=== PATIENT | female | born 1990 | race Caucasian/White ===

== ENCOUNTER 2022-12-11 21:00 | Outpatient (CLI) | payer OTHER ==
--- NOTE | 2022-12-12 09:15 | Ultrasound Report ---
PROCEDURE: Pelvic w/Transvaginal INDICATIONS: IUD SURVEILLANCE TECHNIQUE: Real-time scanning was performed of the pelvic organs, with image documentation. Additional endovagi nal scanning was necessary due to incomplete visualization of the adnexal and endometrial structures by transabdominal scanning. COMPARISON: None. FINDINGS: Uterus: Uterus is anteverted and normal in size at 7.6 x 3.7 x 4.9 cm. The myometrium is homogeneou s. The endometrium measures 5 mm in combined thickness. IUD within the central myometrium. Ovaries: The right ovary measures 2.8 x 3.3 x 2.7 cm, with a calculated ovarian volume of 13 cc. Th e left ovary measures 3.0 x 2.3 x 2.1 cm, with a calculated ovarian volume of 8 cc. Complex right ov monico follicle, with anechoic and hyperechoic components. The ovaries have a normal sonographic appea ayan. Less than 12 follicles can be seen in each ovary. No adnexal masses are seen. No cystic lesi ons measuring greater than 3 cm. Other: No pathologic free abdominal or pelvic fluid. IMPRESSION: IUD within the central endometrium. Complex right ovarian follicle with anechoic and hyperechoic components. Differential includes a derm oid/mature teratoma or hemorrhagic cyst. Consider 6-12 week follow-up. Reviewed by: Bradley Ba on 12/12/2022 9:14 AM PDT Approved by: Bradley Ba on 12/12/2022 9:14 AM PDT Station ID: [id number]
== END 2022-12-11 21:01 | disposition home or self-care (01) ==
LOC: DI 21:00
PROVIDERS: ATTEND Nurse Practitioner
DX: Z30.431 Encounter for routine checking of intrauterine contraceptive device (principal)

== ENCOUNTER 2023-07-13 08:00 | Outpatient (CLI) | payer OTHER ==
[2023-07-13 17:36] LABS: BILIRUBIN,URINE NEGATIVE (NEGATIVE); GLUCOSE, URINE (UA) NEGATIVE (NEGATIVE); KETONES,URINE (UA) 40 mg/dL (NEGATIVE); LEUKOCYTE ESTERASE, URINE NEGATIVE (NEGATIVE); NITRITE,URINE NEGATIVE (NEGATIVE); OCCULT BLOOD,URINE NEGATIVE (NEGATIVE); PROTEIN,URINE NEGATIVE (NEGATIVE); UROBILINOGEN,URINE 0.2 (NORMAL) E.U./dL (NORMAL)
[2023-07-13 17:56] LABS: CLARITY,URINE CLEAR (CLEAR)
[2023-07-13 18:00] LABS: BACTERIA,URINE Moderate /HPF (None Seen); RBC,URINE 0-5 /HPF (0-5); SQUAMOUS EPITHELIAL CELL,UR FEW Squamous (<= Few)
== END 2023-07-13 23:59 | disposition home or self-care (01) ==
LOC: LAB.WC 08:00
PROVIDERS: ATTEND Obstetrics & Gynecology
DX: Z34.90 Encounter for supervision of normal pregnancy, unspecified, unspecified trimester (principal)
CPT/HCPCS: 81001; 87086

== ENCOUNTER 2023-07-26 10:26 | Outpatient (CLI) | payer OTHER ==
[2023-07-26 23:01] LABS: CHLAMYDIA TRACHOMATIS DNA NEGATIVE (NEGATIVE); NEISSERIA GONORRHOEAE DNA NEGATIVE (NEGATIVE); TRICHOMONAS VAGINALIS DNA NEGATIVE (NEGATIVE)
== END 2023-07-26 10:27 | disposition home or self-care (01) ==
LOC: LAB 10:26
PROVIDERS: ATTEND Obstetrics & Gynecology
DX: Z36.89 Encounter for other specified antenatal screening (principal)
CPT/HCPCS: 87491; 87591; 87661

== ENCOUNTER 2023-08-13 18:30 | Outpatient (CLI) | payer OTHER ==
--- NOTE | 2023-08-14 11:54 | Ultrasound Report ---
PROCEDURE: OB 1st Trimester INDICATIONS: POSITIVE TEST OUTSIDE/PRIOR DATING DATA: Last menstrual period (LMP): 05/07/2023. LMP-based estimated date of delivery (KATTY): 02/11/2024. First dating scan (date and location): Today. Estimated date of delivery (KATTY) from first dating scan: 04/10/2023. TECHNIQUE: Real-time scanning was performed of the fetus and maternal pelvic organs, with image documentation. COMPARISON: None. FINDINGS: Intrauterine living gestation at an ultrasound age of 14 weeks and 3 days. Renfrow-rump bobby th is 8.19 cm. BPD is 2.73 cm. Head circumference is 9.86 cm. Abdominal circumference is 8.24 cm. Fem ur length is 1.4 cm. heart motion at a rate of 153 bpm. Cervical length is 4.7 cm. Left corpus luteum cyst. IMPRESSION: Living intrauterine gestation at an ultrasound age of 14 weeks and 3 days. Recommend anatomic survey at 20 weeks of gestation. Reviewed by: Jet Estrella MD on 08/14/2023 11:53 AM PDT Approved by: Jet Estrella MD on 08/14/2023 11:53 AM PDT Station ID: [id number]
== END 2023-08-13 18:31 | disposition home or self-care (01) ==
LOC: DI 18:30
PROVIDERS: ATTEND Obstetrics & Gynecology
DX: Z34.91 Encounter for supervision of normal pregnancy, unspecified, first trimester (principal)

== ENCOUNTER 2023-09-17 11:43 | Outpatient (CLI) | payer OTHER | END 2023-09-17 11:44 | disposition home or self-care (01) | LOC: LAB 11:43 | PROVIDERS: ATTEND Obstetrics & Gynecology | DX: Z34.90 Encounter for supervision of normal pregnancy, unspecified, unspecified trimester (principal) | CPT/HCPCS: 36415; 82105 ==

== ENCOUNTER 2023-09-25 18:35 | Outpatient (CLI) | payer OTHER ==
--- NOTE | 2023-09-26 20:06 | Ultrasound Report ---
PROCEDURE: OB Anatomy Scan INDICATIONS: SUPERVISION OF OUTSIDE/PRIOR DATING DATA: Last menstrual period (LMP): 05/07/2023. LMP-based estimated date of delivery (KATTY): 06/12/2023. First dating scan (date and location): 08/13/2023. Estimated date of delivery (KATTY) from first dating scan: 04/10/2023. The below data below was generated using the working KATTY of 04/13/2023 TECHNIQUE: Ultrasound of the gravid uterus was performed and recorded. COMPARISON: None. FINDINGS: General: A single live intrauterine gestation is present. Presentation: Vertex Placenta: Placental position is posterior without previa. Amniotic fluid index: 16.7 cm, 72.4 percentile for gestational age. heart rate: 150 beats per minute. Maternal cervical canal: 3.2 cm long; normal length is 2.5 cm or more. biometrics: Biparietal diameter: 4.75 cm, 20 week 3 day, 59 percentile Head circumference: 17.9 cm, 20 week 3 day, 54 percentile Abdominal circumference: 15.4 cm, 20 week 4 day, 60 percentile Femur length: 3.4 cm, 20 week 6 day, 16 percentile Estimated gestational age by working dates: 20 week 1 day Composite gestational age by current ultrasound: 20 week 4 day Estimated weight and percentile: 370 g, 75 percentile Measurement variability in biometric dating: +/- 10 days from 12-20 weeks gestation, +/- 2 weeks from 20-30 weeks gestation, +/- 3 weeks at 30 weeks gestation or more. Anatomic survey: Neuro: Ventricles are non-dilated at less than 10 mm. Cisterna magna is normal at 3-11 mm. Cerebel lum is normal in size and morphology. Nuchal skin fold: Normal at less than 6 mm between 14-20 weeks gestational age. Face: Nose and lips, facial profile are normal. Spine: No evidence for spina bifida. Heart: 4-chambered heart is present, with normal ventricular outflow tracts. Diaphragm: Diaphragm is intact. Stomach: Left-sided stomach is present. Kidneys: No hydronephrosis. Normal is less than 5 mm in 2nd trimester, less than 7 mm in 3rd trimester. Cord: 3-vessel cord has orthotopic insertion. Bladder: Normal in size. Extremities: All 4 extremities identified. Other: Not applicable. IMPRESSION: Single live intrauterine consistent with 20 week 4 day gestation by current ultrasound Normal anatomic survey Reviewed by: Onur De León MD on 09/26/2023 7:04 PM LUIS Approved by: Onur De León MD on 09/26/2023 7:04 PM LUIS Station ID: [id number]
== END 2023-09-25 18:36 | disposition home or self-care (01) ==
LOC: DI 18:35
PROVIDERS: ATTEND Obstetrics & Gynecology
DX: Z34.92 Encounter for supervision of normal pregnancy, unspecified, second trimester (principal); Z36.89 Encounter for other specified antenatal screening

== ENCOUNTER 2023-11-01 14:31 | Outpatient (CLI) | payer OTHER ==
[2023-11-01 15:42] LABS: HCT - HEMATOCRIT 33.7 % (37.0-47.0); HGB - HEMOGLOBIN 11.5 g/dL (12.0-16.0); MEAN CORPUSCULAR HEMOGLOBIN 32.3 pg (27.0-31.0); MEAN CORPUSCULAR HGB CONC 34.1 g/dL (32.0-36.0); MEAN CORPUSCULAR VOLUME 94.7 fL (81.0-99.0); MEAN PLATELET VOLUME 9.3 fL (7.9-10.8); RED BLOOD COUNT 3.56 10^6/uL (4.20-5.40); RED CELL DISTRIBUTION WIDTH 12.9 % (12.0-15.0); WHITE BLOOD COUNT 8.8 x10^3/uL (4.8-10.8)
== END 2023-11-01 14:32 | disposition home or self-care (01) ==
LOC: LAB 14:31
PROVIDERS: ATTEND Obstetrics & Gynecology
DX: Z34.02 Encounter for supervision of normal first pregnancy, second trimester (principal)
CPT/HCPCS: 36415; 82950; 85027

== ENCOUNTER 2023-11-16 08:00 | Outpatient (CLI) | payer OTHER ==
[2023-11-16 08:27] LABS: GTT GLUCOSE,FASTING 81 mg/dL (74-109)
== END 2023-11-16 08:01 | disposition home or self-care (01) ==
LOC: LAB 08:00
PROVIDERS: ATTEND Obstetrics & Gynecology
DX: O99.810 Abnormal glucose complicating pregnancy (principal)
CPT/HCPCS: 36415; 82951; 82952

== ENCOUNTER 2024-01-23 12:02 | Inpatient (IN) ==
[2024-01-23] MEDS ORDERED: hydrALAZINE INJ 20 MG/ML VIAL IVP PRN (12:18)
[2024-01-23] MEDS ORDERED: SODIUM CHLORIDE FLUSH 0.9% 10 ML SYRINGE IVP PRN (12:18)
[2024-01-23] MEDS ORDERED: TERBUTALINE 1 MG/ML VIAL SUBQ PRN (12:18)
[2024-01-23] MEDS ORDERED: ONDANSETRON 4 MG/2 ML VIAL IVP PRN (12:18)
[2024-01-23] MEDS ORDERED: OXYTOCIN 10 UNIT/ML VIAL IM PRN (12:18)
[2024-01-23] MEDS ORDERED: NIFEdipine 10 MG CAPSULE PO PRN (12:18)
[2024-01-23] MEDS ORDERED: TRANEXAMIC ACID IN NACL 1,000 MG/100 ML BAG IV PRN (12:18)
[2024-01-23] MEDS ORDERED: miSOPROStoL 200 MCG TABLET BC PRN (12:18)
[2024-01-23] MEDS ORDERED: miSOPROStoL 200 MCG TABLET PR PRN (12:18)
[2024-01-23] MEDS ORDERED: LABETALOL 20 MG/4 ML SYRINGE IVP PRN ×3 (12:18)
[2024-01-23] MEDS ORDERED: METHYLERGONOVINE 0.2 MG/ML VIAL IM PRN (12:18)
[2024-01-23] MEDS: miSOPROStoL 100 MCG TABLET VG SCH (12:54)
--- NOTE | 2024-01-23 13:31 | HISTORY & PHYSICAL EXAMINATION ---
Admit History Smoking Status: Never smoker Other Maternal History Other Maternal History: Patient is a 33-year-old G2, P0 at 37 weeks 2 days gestation presenting for induction of labor secondary to preeclampsia. She has good movement. Denies loss of fluid. No RODRIGUEZ/BV or RUQP. No vaginal bleeding. Denies nausea and vomiting. Denies urinary urgency or dysuria. All other symptoms reviewed and were negative except per HPI. Please call Dr. 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 [employer] AMA - not taking ASA s< d - US: 12/25 38% 2133g Pre- Weight:148.0 BMI: 27.17 Blood type: O+ Antibody: Negative CBC: H/H 12.0/35.6 plt 270 RUB:Immune VZV:Immune HBsAg: Negative HepC: NR RPR/AB-EIA: NR HIV:NR PAP:11/2022 - normal GC/CT: 07/25 negative HSV:denies in self and partner Genetic testing: [id number] negative, AFP Negative FAS: Scheduled 09/23 Placenta: posterior Cord: 3VC WES: 16.7cm; 72.4%tile EFW: 370%tile 50gm OGCT: 141 3HR GTT: 81 151, 106, 93 TDAP:11/26/2023 Breast Pump: received 3rd trimester PLT 232 HCT 33.7 HGB 11.5 11/28/23 hct 32.8% GBS: Delivery plan: Contraception:Possibly IUD. Still considering.: 38%, OB Visit Log Initial Weight: 148 lb Date EGA Weight BP Fundal ht Pres HR Movement CTX Edema Cerv Dil Cerv Eff % Sta 12/10/23 31w 0d 162 lb(+14 lb) 116/80 29 145 active ab sent 12/24/23 33w 0d 165 lb(+17 lb) 132/88 31 145 active oc casional absent 01/01/24 34w 1d 166 lb(+18 lb) 131/88 32 140 active a bsent 01/07/24 35w 0d 166 lb(+18 lb) 130/80 34 Cephalic 145 active ab sent absent 01/14/24 36w 0d 165 lb(+17 lb) 130/71921/16836/94 35 Cephalic 130 act kathy absent absent 01/21/24 37w 0d 168 lb(+20 lb) 140/26193/90 35 Cephalic 145 active absent ab sent 1 0 Notes Visit Date: 01/21/24 Last Updated by: Cody Woody MD Initially elevated BP, then normalized. Cervical exam today caused a moderate amount of bleeding with anterior lip, stopped with pressure from swab. Bleeding precautions given. Patient picked up BP cuff this weekend, but has not checked at home. Wants to discuss plan with her partner before induction. Will come back in two days for BP check and possible induction. Labor precautions and preeclampsia precautions given. Visit Date: 01/14/24 Last Updated by: Cody Woody MD Has URI. BP mildly elevated today. May be due to URI, but has been a little elevated the last several visits. Labs not concerning for preeclampsia today. If it remains elevated, may need early induction. Will finalize plan next week if elevated. GBS collected today. Cephalic presentation. Visit Date: 01/07/24 Last Updated by: Cody Woody MD Patient feeling pain in her left upper quadrant, slightly below the ribs. This gets worse with exertion and improves with lying down. Also improves if she puts pressure on it. Not reproducible on exam today. Discussed that this is likely not severe as it is relieved with touch. If this worsens, should let us know. Also developing hemorrhoids, and declines exam today, however discussed the progression of hemorrhoids in especially over the next few weeks as she gets heavier. Visit Date: 01/01/24 Last Updated by: Renetta J Burckhardt, CHIEF GAUGER Group session. Group education and discussion on contraception including immediate and 6 week options and compatibility with . Discussed medications, care and scheduling with pediatric practices on [place]. Bringing home, carseat safety, swaddling and calming a fussy baby reviewed. Discussion about preparedness for labor and , active management in the third stage and plans for support in the early weeks . ~kjb Visit Date: 12/24/23 Last Updated by: Ursula Crabtree MD here alone. no significant headaches. one 2 d ago and better with tylenol. did birthing class on 12/06 with Radha. felt it was helpful. preeclampsia/PTL precautions. Erin says she was born a month early and wonders if this baby will be early. baby feels low to her and to me. measuring a bit small, likely because it is low. US ordered to check growth and fluid. Both she and her plan a month off with delivery. 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 RSV vaccine today. -djl Visit Date: 12/10/23 Last Updated by: Cody Woody MD Doing very well. Had a good birthing education last week. Discussed delivery timing and baby growth. Things looking very normal. Meds/Allgy Home Medications Ambulatory Orders Medication Instructions Recorded Confirmed fluticasone propionate 50 1 spray intranasal QDAY PRN 12/10/23 01/21/24 mcg/actuation nasal spray,suspension vitamin#30 30 mg iron-10 cap PO 12/10/23 01/21/24 mg iron-folic acid 1 mg-omg3 capsule vit C 90 mg-D3 3.15 mcg-E 3.35 tab PO 12/24/23 01/21/24 [id number] 150 mg chew tablet (Airborne Elderberry Complex) Allergies Allergies Allergy/AdvReac Type Severity Reaction Status Date / Time No Known Drug Allergies Allergy Verified 01/23/24 17:33 [facility] Medical History Medical History (Updated 01/23/24 @ 21:31 by Cody Woody MD) Elevated blood pressure reading in office without diagnosis of hypertension Social History Social History (Updated 12/10/23 @ 12:01 by Josselin Vigil MA) Smoking Status: Never smoker ETOH Use: Wine Substance Use: denies use Physical Other Notes Labor Progress Note/Additional Text: General: Alert, oriented, no acute distress Head: Normal cephalic atraumatic Eyes: PERRLA, extraocular motions intact. Respiratory: Normal rate of respiration. No accessory muscle use, normal respiratory effort. Cardiovascular: Regular rate and rhythm Abdomen: Gravid, nontender, nondistended Extremities: Normal range of motion Neuro: Oriented x3. Normal movements Psych: Appropriate mood and affect. Normal judgment and insight SVE: 03/17/3 Category 1 tracing Irregular contractions Deng: 1 Plan for Labor Plan For Labor I expect patient to be DC'd or transferred within 96 hours.: Yes Conclusion/Plan Problem List (1) 37 weeks gestation of : Plan: Admit to L&D, admit labs, epidural at patient's request Continuous monitoring (2) Pre-eclampsia, severe: Plan: Elevated, but not severe blood pressures. Elevated protein to creatinine ratio. Elevated transaminases. No other symptoms of severe features. Strict Is and Os. Initiate magnesium sulfate for severe features. Will treat blood pressure as needed. Qualifiers: Trimester: third trimester Qualified Code(s): O14.13 - Severe pre- eclampsia, third trimester (3) Advanced maternal age (AMA) in : Plan: Routine care Lab Results 01/23/24 13:30 01/23/24 13:30
[2024-01-23 14:07] LABS: BASOPHILS % (AUTO) 0.4 %; EOSINOPHILS % (AUTO) 0.4 %; HCT - HEMATOCRIT 37.2 % (37.0-47.0); HGB - HEMOGLOBIN 12.2 g/dL (12.0-16.0); LYMPHOCYTES # (AUTO) 1.3 10^3/uL (1.5-3.5); LYMPHOCYTES % (AUTO) 15.9 %; MEAN CORPUSCULAR HEMOGLOBIN 31.4 pg (27.0-31.0); MEAN CORPUSCULAR HGB CONC 32.8 g/dL (32.0-36.0); MEAN CORPUSCULAR VOLUME 95.6 fL (81.0-99.0); MEAN PLATELET VOLUME 10.3 fL (7.9-10.8); MONOCYTES # (AUTO) 0.7 10^3/uL (0.0-1.0); MONOCYTES % (AUTO) 7.9 %; NEUTROPHILS # (AUTO) 6.1 10^3/uL (1.5-6.6); NEUTROPHILS % (AUTO) 74.5 %; PLT - PLATELET COUNT 242 10^3/uL (130-450); RED BLOOD COUNT 3.89 10^6/uL (4.20-5.40); RED CELL DISTRIBUTION WIDTH 12.7 % (12.0-15.0); WHITE BLOOD COUNT 8.2 x10^3/uL (4.8-10.8)
[2024-01-23 14:24] LABS: ALBUMIN 3.5 g/dL (3.2-5.5); ALBUMIN/GLOBULIN RATIO 1.1 (1.0-2.2); BILIRUBIN,TOTAL 0.5 mg/dL (0.2-1.0); CALCIUM 9.6 mg/dL (8.5-10.3); CREATININE 0.5 mg/dL (0.6-1.3); POTASSIUM 3.9 mmol/L (3.5-4.5); TOTAL PROTEIN 6.6 g/dL (6.4-8.9)
[2024-01-23 14:43] LABS: PROTEIN/CREATININE RATIO,URINE 0.2 (<=0.2)
[2024-01-23] MEDS: LACTATED RINGERS 1,000 ML IV SCH (15:11)
[2024-01-23] MEDS: MAGNESIUM SULFATE 4 GRAM 4 GM/50 ML BAG IV ONE (15:17)
[2024-01-23] MEDS: MAGNESIUM SULFATE IN WATER 20 GM/500 ML IV.SOLN IV SCH (15:45)
[2024-01-23] MEDS: ACETAMINOPHEN 500 MG TABLET PO PRN (20:08)
[2024-01-23] MEDS: CALCIUM CARBONATE CHEW 500 MG TABLET PO SCH (21:05)
[2024-01-23] MEDS: SODIUM CHLORIDE FLUSH 0.9% 10 ML SYRINGE IVP SCH (21:06)
[2024-01-23] MEDS: fentaNYL 100 MCG/2 ML VIAL IVP PRN (23:43)
[2024-01-24] MEDS: miSOPROStoL 100 MCG TABLET BC SCH (01:10)
[2024-01-24] MEDS ORDERED: ROPIVACAINE 0.2% 200 MG/100 ML BAG EP ONE (05:44)
[2024-01-24] MEDS ORDERED: LIDOCAINE 2%-EPI 1:100000 20 ML MDV ONE (05:44)
--- NOTE | 2024-01-24 06:47 | ANESTHESIA PROCEDURE NOTE ---
Pre-Anesthesia VS, & Labs Diagnosis Surgical Diagnosis:: 37/2 for iol for pre eclampsia, on mag Procedure Procedure: placement of labor epidural Vitals Vital Signs: Temp Pulse Resp BP Pulse Ox 36.7 C 81 16 136/93 H 98 01/24/24 04:00 01/24/24 04:00 01/24/24 04:00 01/24/24 04:00 01/23/24 21:12 Height (in): 5 ft 2 in Weight (kg): 75 kg Body Mass Index: 30.2 BMI Classification: Obese NPO Last Fluid Intake: sips at this point Is Patient ?: Yes Lab Results Current Lab Results: Laboratory Tests 01/23/24 13:30: WBC 8.2, RBC 3.89 L, Hgb 12.2, Hct 37.2, MCV 95.6, MCH 31.4 H, MCHC 32.8, RDW 12.7, Plt Count 242, MPV 10.3, Neut # (Auto) 6.1, Lymph # (Auto) 1.3 L, [place] # (Auto) 0.7, Eos # (Auto) 0.0, Baso # (Auto) 0.0, Absolute Nucleated RBC 0.00, Nucleated RBC % 0.0, Sodium 137, Potassium 3.9, Chloride 105, Carbon Dioxide 23, Anion Gap 9.0, BUN 9, Creatinine 0.5 L, Estimated GFR (MDRD) 140, Glucose 97, Calcium 9.6, Total Bilirubin 0.5, AST 84 H, ALT 214 H, A lkaline Phosphatase 132 H, Total Protein 6.6, Albumin 3.5, Globulin 3.1, Albumin/Globulin Ratio 1.1, Blood Type O POSITIVE, Antibody Screen NEGATIVE Lab results reviewed: Yes 01/23/24 13:30 01/23/24 13:30 Meds/Allgy Home Medications Ambulatory Orders Medication Instructions Recorded Confirmed fluticasone propionate 50 1 spray intranasal QDAY PRN 12/10/23 01/21/24 mcg/actuation nasal spray,suspension vitamin#30 30 mg iron-10 cap PO 12/10/23 01/21/24 mg iron-folic acid 1 mg-omg3 capsule vit C 90 mg-D3 3.15 mcg-E 3.35 tab PO 12/24/23 01/21/24 [id number] 150 mg chew tablet (Airborne Elderberry Complex) Allergies Allergies Allergy/AdvReac Type Severity Reaction Status Date / Time No Known Drug Allergies Allergy Verified 01/23/24 17:33 PFSH Medical History Medical History Elevated blood pressure reading in office without diagnosis of hypertension Social History Social History Smoking Status: Never smoker ETOH Use: Wine Substance Use: denies use Anesthesia Exam (Expanded) Exam General: Alert and Mild distress Dental: WNL Mouth Openin Fingerbreadth Neck Mobility: Normal Mallampati classification: II Thyromental Distance: 4-6 cm Respiratory: Lungs clear Cardiovascular: Regular rate Mental/Cognitive Status: Other (denies visual disturbance or ringing in hears) Plan Problem List (1) 37 weeks gestation of : Plan: Admit to L&D, admit labs, epidural at patient's request Continuous monitoring (2) Pre-eclampsia, severe: Plan: Elevated, but not severe blood pressures. Elevated protein to creatinine ratio. Elevated transaminases. No other symptoms of severe features. Strict Is and Os. Initiate magnesium sulfate for severe features. Will treat blood pressure as needed. Qualifiers: Trimester: third trimester Qualified Code(s): O14.13 - Severe pre- eclampsia, third trimester (3) Advanced maternal age (AMA) in : Plan: Routine care Plan Anesthesia Type: Epidural Consent for Procedure(s) Verified and Reviewed: Yes Code Status: Attempt Resuscitation ASA Classification ASA classification: 2-Mild systemic disease Is this case an emergency?: No
[2024-01-24] MEDS ORDERED: ePHEDrine 50 MG/ML VIAL IVP PRN (06:50)
[2024-01-24] MEDS ORDERED: NALOXONE 0.4 MG/ML VIAL IVP PRN (06:50)
[2024-01-24] MEDS ORDERED: diphenhydrAMINE INJ 50 MG/ML VIAL IVP PRN (06:50)
[2024-01-24] MEDS ORDERED: ROPIVACAINE 0.2% 200 MG/100 ML BAG EP PRN (06:50)
[2024-01-24] MEDS ORDERED: ONDANSETRON 4 MG/2 ML VIAL IVP PRN ×2 (06:50→14:28)
[2024-01-24] MEDS ORDERED: NALBUPHINE 10 MG/ML AMP IVP PRN (06:50)
[2024-01-24] MEDS ORDERED: METOCLOPRAMIDE 10 MG/2 ML VIAL IVP PRN (06:50)
[2024-01-24] MEDS: LACTATED RINGERS 1,000 ML IV PRN (08:12)
[2024-01-24] MEDS: LACTATED RINGERS 500 ML IV ONE (08:14)
[2024-01-24] MEDS: OXYTOCIN/SODIUM CHLORIDE 500 ML IV SCH (08:40)
--- NOTE | 2024-01-24 10:09 | PROVIDER PROGRESS NOTE ---
Labor Progress Note Labor Progress Note Labor Progress Note/Additional Text: Patient comfortable between contractions. Have an epidural placed at approximately 0615. Had some hypotension afterwards and had late/prolonged decelerations and received a fluid bolus and hypotension resolved. Oxytocin was initiated when heart tracing was category 1 and is progressed to 9/90/+1. Spontaneous rupture of membranes last night. Plan to recheck in 1 hour. Anticipate .
[2024-01-24] MEDS: lidocaine 1% 20 ML MDV ID PRN (13:49)
[2024-01-24] MEDS ORDERED: WITCH HAZEL/GLYCERIN 1 PAD TOP PRN (14:28)
[2024-01-24] MEDS ORDERED: SIMETHICONE CHEW 80 MG TABLET PO PRN (14:28)
--- NOTE | 2024-01-24 14:32 | DELIVERY NOTE ---
Delivery Note Labor Labor: positive Augmented by oxytocin Cervical Ripening Method Cervical Ripening Method: positive Misoprostil Presentation Presentation: positive Vertex Nuchal Cord Nuchal Cord: positive None Amniotic Fluid Description Amniotic Fluid Description: positive Clear Laceration Laceration: positive Labial (Right) Suture Suture Type: positive Vicryl Suture Size: positive 3-0 Delivery Outcome Delivery Outcome: positive Livebirth [place] : positive Placed in direct skin contact with mother and [place] used [place] sex: positive Female Cord Cord: positive 3 vessels Placenta Placenta: positive Intact Estimated Blood Loss Estimated Blood Loss (in cc): 350 Post Delivery Events Post Delivery Events: positive No post delivery events Delivery Comments (Free Text/Narrative) Delivery Comments (Free Text/Narrative): Preoperative Diagnoses Preeclampsia with severe features 37 weeks gestation Events maternal age Postoperative Diagnoses Same Delivery of live brooks Status post spontaneous vaginal delivery Summary Patient is admitted at 37 weeks gestation for preeclampsia with severe features. She received magnesium sulfate. Transaminases were double the normal limit and protein to creatinine ratio was 0.3. Blood pressures were elevated, but no sustained severe pressures were noted. She was started on misoprostol for cervical ripening then had spontaneous rupture of membranes. She received an epidural for pain control, and after placement, she had hypotension that resulted in a short period of late and prolonged decelerations. This resolved with a fluid bolus. She had oxytocin for augmentation until complete and ready to push. Her second stage was uneventful, but due to the long spacing between contractions, did take longer than anticipated. Delivery Summary: Patient was placed in the dorsal lithotomy position. Upon maternal pushing the head was delivered atraumatically followed by the anterior shoulder, posterior shoulder, then the remainder of the infant's body. A female infant was delivered with APGARS of 8 at 1 minute and 8 at 5 minutes. The infant was placed on its mother's chest . After the cord finished pulsating, the umbilical cord was clamped times two and cut. The placenta delivered intact with three vessel cord. Placenta was not sent to pathology. Thirty units of Pitocin were added to the IV fluid and allowed to run freely. Uterine massage was performed until uterus was deemed firm. Upon inspection of the perineum, a small, right labial laceration was noted and was repaired with a single [id number] stitch of 3-0 Vicryl. We did anesthetize the area with lidocaine. Upon re-inspection the patient was hemostatic. Uterus again massaged and found to be firm. Needle and sponge counts were correct. Patient was stable and allowed to recover in L&D room. Infant was stable and remained in room with mother. weight is pending at this time.
[2024-01-24] MEDS: IBUPROFEN 600 MG TABLET PO SCH (14:51)
[2024-01-24] MEDS: ACETAMINOPHEN 500 MG TABLET PO SCH (14:51)
[2024-01-24] MEDS ORDERED: LACTATED RINGERS 1,000 ML IV SCH (15:00)
[2024-01-24 18:50] LABS: BASOPHILS % (AUTO) 0.2 %; HCT - HEMATOCRIT 33.4 % (37.0-47.0); HGB - HEMOGLOBIN 11.1 g/dL (12.0-16.0); LYMPHOCYTES # (AUTO) 0.8 10^3/uL (1.5-3.5); LYMPHOCYTES % (AUTO) 3.9 %; MEAN CORPUSCULAR HEMOGLOBIN 31.6 pg (27.0-31.0); MEAN CORPUSCULAR HGB CONC 33.2 g/dL (32.0-36.0); MEAN CORPUSCULAR VOLUME 95.2 fL (81.0-99.0); MEAN PLATELET VOLUME 10.1 fL (7.9-10.8); MONOCYTES # (AUTO) 1.1 10^3/uL (0.0-1.0); MONOCYTES % (AUTO) 5.9 %; NEUTROPHILS # (AUTO) 17.4 10^3/uL (1.5-6.6); NEUTROPHILS % (AUTO) 89.2 %; PLT - PLATELET COUNT 245 10^3/uL (130-450); RED BLOOD COUNT 3.51 10^6/uL (4.20-5.40); RED CELL DISTRIBUTION WIDTH 12.8 % (12.0-15.0); WHITE BLOOD COUNT 19.5 x10^3/uL (4.8-10.8)
[2024-01-24 19:31] LABS: ALBUMIN/GLOBULIN RATIO 1.2 (1.0-2.2); BILIRUBIN,TOTAL 0.7 mg/dL (0.2-1.0); CALCIUM 6.3 mg/dL (8.5-10.3); CREATININE 0.8 mg/dL (0.6-1.3); POTASSIUM 3.8 mmol/L (3.5-4.5); TOTAL PROTEIN 5.5 g/dL (6.4-8.9)
[2024-01-24] MEDS: OXYTOCIN/SODIUM CHLORIDE 500 ML IV PRN (19:51)
[2024-01-24] MEDS: fentaNYL 100 MCG/2 ML VIAL IVP SCH (19:52)
[2024-01-24] MEDS ORDERED: CALCIUM CARBONATE 1,250 MG/5 ML UDC PO SCH (21:20)
[2024-01-24] MEDS ORDERED: CALCIUM CARBONATE CHEW 500 MG TABLET ONE (21:25)
--- NOTE | 2024-01-24 23:36 | PROVIDER PROGRESS NOTE ---
Progress Note Progress Note Progress Note: Went to patient's room at approximately 1930 after nursing called about increased blood loss. She had an additional gush of blood after getting up to go to the bathroom and nursing had expressed clots and had active bleeding. Oxytocin started and bleeding resolved. Upon my exam, she had a small amount of blood on the pad, but no active bleeding. Uterus is firm and below the umbilicus. Vital signs were normal. No dizziness or lightheadedness. In the interim, her labs did come back with critical hypocalcemia, likely from dilution, but no symptoms. Will supplement with oral calcium.
--- NOTE | 2024-01-25 06:52 | PROVIDER PROGRESS NOTE ---
Current Medications Current Medications Current Medications: Current Medications Generic Name Dose Route Start Last Admin Trade Name Freq PRN Reason Stop Dose Admin Acetaminophen 500 mg 01/23/24 12:18 01/23/24 20:08 Acetaminophen 500 Mg Tablet PO 500 mg Q4HR PRN Administration Pain or Fever > 38C (100.4F) Acetaminophen 1,000 mg 01/24/24 15:00 01/24/24 21:29 Acetaminophen 500 Mg Tablet PO 1,000 mg Q8HR BACILIO Administration Calcium Carbonate/Glycine 500 mg 01/23/24 21:00 01/24/24 21:28 Calcium Carbonate Chew 500 Mg Tablet PO 500 mg BID BACILIO Administration Calcium Carbonate/Glycine 500 mg 01/24/24 14:28 Calcium Carbonate Chew 500 Mg Tablet PO TID PRN Heartburn Calcium Carbonate/Glycine 1,000 mg 01/24/24 21:20 Calcium Carbonate 1,250 Mg/5 Ml Udc PO BID BACILIO Diphenhydramine HCl 12.5 - 25 mg 01/24/24 06:50 Diphenhydramine Inj 50 Mg/Ml Vial IVP Q6HR PRN ITCHING Docusate Sodium 100 mg 01/23/24 12:18 Docusate Sodium 100 Mg Capsule PO DAILY PRN Constipation Ephedrine Sulfate 5 mg 01/24/24 06:50 Ephedrine 50 Mg/Ml Vial IVP Q5M PRN For SBP<100;give until SBP>100 Fentanyl 50 mcg 01/24/24 20:00 01/24/24 19:52 Fentanyl 100 Mcg/2 Ml Vial IVP 01/25/24 20:01 50 mcg ONCE BACILIO Administration Hydralazine HCl 5 - 10 mg 01/23/24 12:18 Hydralazine Inj 20 Mg/Ml Vial IVP Q20M PRN SBP> or= 160 OR DBP> or= 110 Protocol Lactated Ringer's 500 mls @ 999 mls/hr 01/23/24 12:18 01/24/24 08:15 Lr IV 100 mls/hr PRN PRN Infusion PER PHYSICIAN ORDER Oxytocin/Sodium Chloride 500 mls @ 999 mls/hr 01/23/24 12:18 01/24/24 19:51 Pitocin/Sodium Chloride IV 999 milliunit/min PRN PRN 999 mls/hr POST- HEMORR PREVENTION Administration Protocol 999 MILLIUNIT/MIN Tranexamic Acid 1,000 mg in 100 mls @ 600 mls/hr 01/23/24 12:18 Tranexamic 1,000 Mg/100ml-Nacl IV Q30M PRN EBL >1200mL and within 3hr Lactated Ringer's 1,000 mls @ 75 mls/hr 01/23/24 14:00 01/24/24 13:50 Lr IV 50 mls/hr .[id number] BACILIO Infusion Magnesium Sulfate 20 gm in 500 mls @ 50 mls/hr 01/23/24 14:00 01/24/24 21:30 Magnesium Sulf 20 G/500 Ml Bag IV 50 mls/hr .Q10H BACILIO Administration Oxytocin/Sodium Chloride 500 mls @ 2 mls/hr 01/24/24 05:00 01/24/24 14:18 Pitocin/Sodium Chloride IV Infused TITR BACILIO Titration Protocol 2 MILLIUNIT/MIN Ropivacaine 200 mg in 100 mls @ 0 mls/hr 01/24/24 06:50 Naropin 0.2% EP PRN PRN PAIN Protocol Per Protocol Lactated Ringer's 1,000 mls @ 100 mls/hr 01/24/24 15:00 Lr IV .Q10H BACILIO Ibuprofen 600 mg 01/24/24 15:00 01/25/24 04:05 Ibuprofen 600 Mg Tablet PO 600 mg Q6HR BACILIO Administration Labetalol HCl 20 mg 01/23/24 12:18 Labetalol 20 Mg/4 Ml Syringe IVP .ONCE PRN SBP> or= 160 OR DBP> or= 110 Protocol Labetalol HCl 20 - 40 mg 01/23/24 12:18 Labetalol 20 Mg/4 Ml Syringe IVP Q10M PRN SBP> or= 160 OR DBP> or= 110 Protocol Labetalol HCl 20 - 80 mg 01/23/24 12:18 Labetalol 20 Mg/4 Ml Syringe IVP Q10M PRN SBP> or= 160 OR DBP> or= 110 Protocol Lidocaine HCl 20 ml 01/23/24 12:18 01/24/24 13:49 Lidocaine 1% 20 Ml Mdv ID 01/26/24 12:18 20 ml .ONCE PRN Administration PERINEAL REPAIR Methylergonovine Maleate 0.2 mg 01/23/24 12:18 Methylergonovine 0.2 Mg/Ml Vial IM .ONCE PRN Hemorrhage Metoclopramide HCl 10 mg 01/24/24 06:50 Metoclopramide 10 Mg/2 Ml Vial IVP Q6HR PRN Nausea / Vomiting Misoprostol 600 mcg 01/23/24 12:18 Misoprostol 200 Mcg Tablet BC .ONCE PRN Hemorrhage Misoprostol 800 mcg 01/23/24 12:18 Misoprostol 200 Mcg Tablet NV .ONCE PRN Hemorrhage Nalbuphine HCl 2.5 - 5 mg 01/24/24 06:50 Nalbuphine 10 Mg/Ml Amp IVP Q4H PRN ITCHING Naloxone HCl 0.1 mg 01/24/24 06:50 Naloxone 0.4 Mg/Ml Vial IVP Q2M PRN RR<8 Nifedipine 10 - 20 mg 01/23/24 12:18 Nifedipine 10 Mg Capsule PO Q20M PRN SBP> or= 160 OR DBP> or= 110 Protocol Ondansetron HCl 4 mg 01/23/24 12:18 Ondansetron 4 Mg/2 Ml Vial IVP Q4HR PRN Nausea / Vomiting Ondansetron HCl 4 mg 01/24/24 06:50 Ondansetron 4 Mg/2 Ml Vial IVP Q6HR PRN Nausea / Vomiting Ondansetron HCl 4 mg 01/24/24 14:28 Ondansetron 4 Mg/2 Ml Vial IVP Q4HR PRN Nausea / Vomiting Oxytocin 10 unit 01/23/24 12:18 Oxytocin 10 Unit/Ml Vial IM .ONCE PRN Step One if no IV access. Simethicone 80 mg 01/24/24 14:28 Simethicone Chew 80 Mg Tablet PO TID PRN Gas Sodium Chloride 10 ml 01/23/24 12:18 Sodium Chloride Flush 0.9% 10 Ml Syringe IVP PRN PRN NEEDED PER PROVIDER ORDERS Sodium Chloride 10 ml 01/23/24 13:00 01/24/24 08:43 Sodium Chloride Flush 0.9% 10 Ml Syringe IVP 10 ml Q8H BACILIO Administration Terbutaline Sulfate 0.25 mg 01/23/24 12:18 Terbutaline 1 Mg/Ml Vial SUBQ .ONCE PRN Tachystole Witch Melania/Glycerin 1 pad 01/24/24 14:28 Witch Melania/Glycerin 1 Pad TOP PRN PRN ITCHING Objective Vital Signs/Intake & Output Vital Signs: Vital Signs x48h Temp Pulse Resp BP Pulse Ox 01/25/24 06:00 79 16 107/79 01/25/24 05:00 72 16 106/69 01/25/24 04:00 78 18 127/89 01/25/24 03:00 36.8 C 77 16 105/86 99 01/25/24 02:00 71 18 100/66 01/25/24 01:00 82 16 116/82 01/25/24 00:00 36.7 C 82 18 108/74 98 01/24/24 23:00 74 16 106/78 Intake & Output: Intake & Output 01/23/24 01/24/24 01/25/24 01/26/24 05:59 05:59 05:59 05:59 Intake Total 3237 / 3237 3890 / 3890 50 / 50 Output Total 1500 / 1500 3075 / 3075 Balance 1737 / 1737 815 / 815 50 / 50 Weight (kg) 166 lb 7.184 oz 165 lb 5.547 oz Lab Results 01/24/24 18:44 01/24/24 18:44 Other Labs: Lab Results x24hrs 01/24/24 Range/Units 18:44 WBC 19.5 H (4.8-10.8) x10^3/uL RBC 3.51 L (4.20-5.40) 10^6/uL Hgb 11.1 L (12.0-16.0) g/dL Hct 33.4 L (37.0-47.0) % MCV 95.2 (81.0-99.0) fL MCH 31.6 H (27.0-31.0) pg MCHC 33.2 (32.0-36.0) g/dL RDW 12.8 (12.0-15.0) % Plt Count 245 (130-450) 10^3/uL MPV 10.1 (7.9-10.8) fL Neut # (Auto) 17.4 H (1.5-6.6) 10^3/uL Lymph # (Auto) 0.8 L (1.5-3.5) 10^3/uL [place] # (Auto) 1.1 H (0.0-1.0) 10^3/uL Eos # (Auto) 0.0 (0.0-0.7) 10^3/uL Baso # (Auto) 0.0 (0.0-0.1) 10^3/uL Absolute Nucleated RBC 0.00 x10^3/uL Nucleated RBC % 0.0 /100WBC Sodium 133 L (135-145) mmol/L Potassium 3.8 (3.5-4.5) mmol/L Chloride 104 (101-111) mmol/L Carbon Dioxide 22 (21-32) mmol/L Anion Gap 7.0 (6-13) BUN 7 (6-20) mg/dL Creatinine 0.8 (0.6-1.3) mg/dL Estimated GFR (MDRD) 82 L (>89) Glucose 234 H (74-104) mg/dL Calcium 6.3 L* (8.5-10.3) mg/dL Total Bilirubin 0.7 (0.2-1.0) mg/dL AST 151 H (10-42) IU/L ALT 287 H (10-60) IU/L Alkaline Phosphatase 115 (42-121) IU/L Total Protein 5.5 L (6.4-8.9) g/dL Albumin 3.0 L (3.2-5.5) g/dL Globulin 2.5 (2.1-4.2) g/dL Albumin/Globulin Ratio 1.2 (1.0-2.2) Assessment/Plan Problem List (1) 37 weeks gestation of : (2) Pre-eclampsia, severe: Qualifiers: Trimester: third trimester Qualified Code(s): O14.13 - Severe pre- eclampsia, third trimester (3) Advanced maternal age (AMA) in :
--- NOTE | 2024-01-25 07:06 | PROVIDER PROGRESS NOTE ---
Subjective Subjective Subjective: No headache, changes in vision, right upper quadrant pain. Patient reports she is doing well. Lochia appropriate. Denies heavy bleeding. Ambulating. No difficulties bleeding Pelvic and abdominal pain well-controlled. Tolerating oral intake. Diet: Regular. Voiding without difficulty. Passing flatus. Denies BM. Patient is bonding with baby in room Breast feeding going well. Denies feeling lightheaded, dizzy or excessively fatigued. Objective General: Alert, oriented, no apparent distress. Cardiovascular: Regular rate. Regular rhythm. Lungs: No increased work of breathing. Clear to auscultation bilaterally. Abdomen: Uterus firm. Below umbilicus. No guarding or rebound. Extremities: No pain on palpation. No cords palpated. Distal pulses intact. DTR 2+. No clonus Current Medications Current Medications Current Medications: Current Medications Generic Name Dose Route Start Last Admin Trade Name Freq PRN Reason Stop Dose Admin Acetaminophen 500 mg 01/23/24 12:18 01/23/24 20:08 Acetaminophen 500 Mg Tablet PO 500 mg Q4HR PRN Administration Pain or Fever > 38C (100.4F) Acetaminophen 1,000 mg 01/24/24 15:00 01/24/24 21:29 Acetaminophen 500 Mg Tablet PO 1,000 mg Q8HR BACILIO Administration Calcium Carbonate/Glycine 500 mg 01/23/24 21:00 01/24/24 21:28 Calcium Carbonate Chew 500 Mg Tablet PO 500 mg BID BACILIO Administration Calcium Carbonate/Glycine 500 mg 01/24/24 14:28 Calcium Carbonate Chew 500 Mg Tablet PO TID PRN Heartburn Calcium Carbonate/Glycine 1,000 mg 01/24/24 21:20 Calcium Carbonate 1,250 Mg/5 Ml Udc PO BID BACILIO Diphenhydramine HCl 12.5 - 25 mg 01/24/24 06:50 Diphenhydramine Inj 50 Mg/Ml Vial IVP Q6HR PRN ITCHING Docusate Sodium 100 mg 01/23/24 12:18 Docusate Sodium 100 Mg Capsule PO DAILY PRN Constipation Ephedrine Sulfate 5 mg 01/24/24 06:50 Ephedrine 50 Mg/Ml Vial IVP Q5M PRN For SBP<100;give until SBP>100 Fentanyl 50 mcg 01/24/24 20:00 01/24/24 19:52 Fentanyl 100 Mcg/2 Ml Vial IVP 01/25/24 20:01 50 mcg ONCE BACILIO Administration Hydralazine HCl 5 - 10 mg 01/23/24 12:18 Hydralazine Inj 20 Mg/Ml Vial IVP Q20M PRN SBP> or= 160 OR DBP> or= 110 Protocol Lactated Ringer's 500 mls @ 999 mls/hr 01/23/24 12:18 01/24/24 08:15 Lr IV 100 mls/hr PRN PRN Infusion PER PHYSICIAN ORDER Oxytocin/Sodium Chloride 500 mls @ 999 mls/hr 01/23/24 12:18 01/24/24 19:51 Pitocin/Sodium Chloride IV 999 milliunit/min PRN PRN 999 mls/hr POST- HEMORR PREVENTION Administration Protocol 999 MILLIUNIT/MIN Tranexamic Acid 1,000 mg in 100 mls @ 600 mls/hr 01/23/24 12:18 Tranexamic 1,000 Mg/100ml-Nacl IV Q30M PRN EBL >1200mL and within 3hr Lactated Ringer's 1,000 mls @ 75 mls/hr 01/23/24 14:00 01/24/24 13:50 Lr IV 50 mls/hr .[id number] BACILIO Infusion Magnesium Sulfate 20 gm in 500 mls @ 50 mls/hr 01/23/24 14:00 01/24/24 21:30 Magnesium Sulf 20 G/500 Ml Bag IV 50 mls/hr .Q10H BACILIO Administration Oxytocin/Sodium Chloride 500 mls @ 2 mls/hr 01/24/24 05:00 01/24/24 14:18 Pitocin/Sodium Chloride IV Infused TITR BACILIO Titration Protocol 2 MILLIUNIT/MIN Ropivacaine 200 mg in 100 mls @ 0 mls/hr 01/24/24 06:50 Naropin 0.2% EP PRN PRN PAIN Protocol Per Protocol Lactated Ringer's 1,000 mls @ 100 mls/hr 01/24/24 15:00 Lr IV .Q10H BACILIO Ibuprofen 600 mg 01/24/24 15:00 01/25/24 04:05 Ibuprofen 600 Mg Tablet PO 600 mg Q6HR BACILIO Administration Labetalol HCl 20 mg 01/23/24 12:18 Labetalol 20 Mg/4 Ml Syringe IVP .ONCE PRN SBP> or= 160 OR DBP> or= 110 Protocol Labetalol HCl 20 - 40 mg 01/23/24 12:18 Labetalol 20 Mg/4 Ml Syringe IVP Q10M PRN SBP> or= 160 OR DBP> or= 110 Protocol Labetalol HCl 20 - 80 mg 01/23/24 12:18 Labetalol 20 Mg/4 Ml Syringe IVP Q10M PRN SBP> or= 160 OR DBP> or= 110 Protocol Lidocaine HCl 20 ml 01/23/24 12:18 01/24/24 13:49 Lidocaine 1% 20 Ml Mdv ID 01/26/24 12:18 20 ml .ONCE PRN Administration PERINEAL REPAIR Methylergonovine Maleate 0.2 mg 01/23/24 12:18 Methylergonovine 0.2 Mg/Ml Vial IM .ONCE PRN Hemorrhage Metoclopramide HCl 10 mg 01/24/24 06:50 Metoclopramide 10 Mg/2 Ml Vial IVP Q6HR PRN Nausea / Vomiting Misoprostol 600 mcg 01/23/24 12:18 Misoprostol 200 Mcg Tablet BC .ONCE PRN Hemorrhage Misoprostol 800 mcg 01/23/24 12:18 Misoprostol 200 Mcg Tablet SC .ONCE PRN Hemorrhage Nalbuphine HCl 2.5 - 5 mg 01/24/24 06:50 Nalbuphine 10 Mg/Ml Amp IVP Q4H PRN ITCHING Naloxone HCl 0.1 mg 01/24/24 06:50 Naloxone 0.4 Mg/Ml Vial IVP Q2M PRN RR<8 Nifedipine 10 - 20 mg 01/23/24 12:18 Nifedipine 10 Mg Capsule PO Q20M PRN SBP> or= 160 OR DBP> or= 110 Protocol Ondansetron HCl 4 mg 01/23/24 12:18 Ondansetron 4 Mg/2 Ml Vial IVP Q4HR PRN Nausea / Vomiting Ondansetron HCl 4 mg 01/24/24 06:50 Ondansetron 4 Mg/2 Ml Vial IVP Q6HR PRN Nausea / Vomiting Ondansetron HCl 4 mg 01/24/24 14:28 Ondansetron 4 Mg/2 Ml Vial IVP Q4HR PRN Nausea / Vomiting Oxytocin 10 unit 01/23/24 12:18 Oxytocin 10 Unit/Ml Vial IM .ONCE PRN Step One if no IV access. Simethicone 80 mg 01/24/24 14:28 Simethicone Chew 80 Mg Tablet PO TID PRN Gas Sodium Chloride 10 ml 01/23/24 12:18 Sodium Chloride Flush 0.9% 10 Ml Syringe IVP PRN PRN NEEDED PER PROVIDER ORDERS Sodium Chloride 10 ml 01/23/24 13:00 01/24/24 08:43 Sodium Chloride Flush 0.9% 10 Ml Syringe IVP 10 ml Q8H BACILIO Administration Terbutaline Sulfate 0.25 mg 01/23/24 12:18 Terbutaline 1 Mg/Ml Vial SUBQ .ONCE PRN Tachystole Witch Melania/Glycerin 1 pad 01/24/24 14:28 Witch Melania/Glycerin 1 Pad TOP PRN PRN ITCHING Objective Vital Signs/Intake & Output Vital Signs: Vital Signs x48h Temp Pulse Resp BP Pulse Ox 01/25/24 06:00 79 16 107/79 01/25/24 05:00 72 16 106/69 01/25/24 04:00 78 18 127/89 01/25/24 03:00 36.8 C 77 16 105/86 99 01/25/24 02:00 71 18 100/66 01/25/24 01:00 82 16 116/82 01/25/24 00:00 36.7 C 82 18 108/74 98 Intake & Output: Intake & Output 01/23/24 01/24/24 01/25/24 01/26/24 05:59 05:59 05:59 05:59 Intake Total 3237 / 3237 3890 / 3890 50 / 50 Output Total 1500 / 1500 3075 / 3075 Balance 1737 / 1737 815 / 815 50 / 50 Weight (kg) 166 lb 7.184 oz 165 lb 5.547 oz Lab Results 01/25/24 07:24 01/24/24 18:44 Other Labs: Lab Results x24hrs 01/24/24 Range/Units 18:44 WBC 19.5 H (4.8-10.8) x10^3/uL RBC 3.51 L (4.20-5.40) 10^6/uL Hgb 11.1 L (12.0-16.0) g/dL Hct 33.4 L (37.0-47.0) % MCV 95.2 (81.0-99.0) fL MCH 31.6 H (27.0-31.0) pg MCHC 33.2 (32.0-36.0) g/dL RDW 12.8 (12.0-15.0) % Plt Count 245 (130-450) 10^3/uL MPV 10.1 (7.9-10.8) fL Neut # (Auto) 17.4 H (1.5-6.6) 10^3/uL Lymph # (Auto) 0.8 L (1.5-3.5) 10^3/uL [place] # (Auto) 1.1 H (0.0-1.0) 10^3/uL Eos # (Auto) 0.0 (0.0-0.7) 10^3/uL Baso # (Auto) 0.0 (0.0-0.1) 10^3/uL Absolute Nucleated RBC 0.00 x10^3/uL Nucleated RBC % 0.0 /100WBC Sodium 133 L (135-145) mmol/L Potassium 3.8 (3.5-4.5) mmol/L Chloride 104 (101-111) mmol/L Carbon Dioxide 22 (21-32) mmol/L Anion Gap 7.0 (6-13) BUN 7 (6-20) mg/dL Creatinine 0.8 (0.6-1.3) mg/dL Estimated GFR (MDRD) 82 L (>89) Glucose 234 H (74-104) mg/dL Calcium 6.3 L* (8.5-10.3) mg/dL Total Bilirubin 0.7 (0.2-1.0) mg/dL AST 151 H (10-42) IU/L ALT 287 H (10-60) IU/L Alkaline Phosphatase 115 (42-121) IU/L Total Protein 5.5 L (6.4-8.9) g/dL Albumin 3.0 L (3.2-5.5) g/dL Globulin 2.5 (2.1-4.2) g/dL Albumin/Globulin Ratio 1.2 (1.0-2.2) Assessment/Plan Problem List (1) 37 weeks gestation of : Impression: Routine care. Anticipate discharge tomorrow. (2) Pre-eclampsia, severe: Impression: Continue MgSO4 until 24 hours, around noon. No signs of worsening disease. AM labs pending. Qualifiers: Trimester: third trimester Qualified Code(s): O14.13 - Severe pre- eclampsia, third trimester (3) Advanced maternal age (AMA) in : (4) hemorrhage: Impression: Approximately 1000ml blood loss. No symptoms of hypovolemia. H/H drop seems appropriate.
[2024-01-25 07:29] LABS: HCT - HEMATOCRIT 26.4 % (37.0-47.0); HGB - HEMOGLOBIN 8.8 g/dL (12.0-16.0); MEAN CORPUSCULAR HEMOGLOBIN 32.2 pg (27.0-31.0); MEAN CORPUSCULAR HGB CONC 33.3 g/dL (32.0-36.0); MEAN CORPUSCULAR VOLUME 96.7 fL (81.0-99.0); RED BLOOD COUNT 2.73 10^6/uL (4.20-5.40); RED CELL DISTRIBUTION WIDTH 13.2 % (12.0-15.0); WHITE BLOOD COUNT 14.5 x10^3/uL (4.8-10.8)
[2024-01-25 07:45] LABS: ALBUMIN 2.7 g/dL (3.2-5.5); ALBUMIN/GLOBULIN RATIO 1.2 (1.0-2.2); BILIRUBIN,TOTAL 0.5 mg/dL (0.2-1.0); CALCIUM 5.8 mg/dL (8.5-10.3); CREATININE 0.6 mg/dL (0.6-1.3)
[2024-01-25] MEDS ORDERED: CALCIUM GLUC 1,000MG/50ML-NACL 1,000 MG/50 ML BAG IV ONE (07:49)
[2024-01-25] MEDS: CALCIUM CARBONATE CHEW 500 MG TABLET PO PRN (12:05)
--- NOTE | 2024-01-26 08:09 | Discharge Summary ---
"Discharge Summary Admit Date: 01/23/24 Discharge Date: 01/26/24 Discharging Provider: Cody Woody MD Code Status: Attempt Resuscitation DIAGNOSES Admission Diagnoses: 37 weeks gestation Preeclampsia with severe features Induction of labor Advanced maternal age Discharge Diagnoses with Status of Each Condition: Delivery of live brooks Status post spontaneous vaginal delivery Preeclampsia severe features Hypocalcemia HPI History of Present Illness: Subjective Patient reports she is doing well. Lochia appropriate. Denies heavy bleeding. Ambulating. Pelvic and abdominal pain well-controlled. Tolerating oral intake. Diet: Regular. Voiding without difficulty. Passing flatus. Denies BM. Patient is bonding with baby in room Breast feeding going well. Denies feeling lightheaded, dizzy or excessively fatigued. Objective General: Alert, oriented, no apparent distress. Cardiovascular: Regular rate. Regular rhythm. Lungs: No increased work of breathing. Abdomen: Uterus firm. Below umbilicus. No guarding or rebound. Extremities: No pain on palpation. No cords palpated. Distal pulses intact. 2+ DTRs, no clonus CONSULTS | PROCEDURES Consultations: Anesthesia Procedures: Spontaneous vaginal delivery HOSPITAL COURSE Hospital Course: Patient presented for induction of labor secondary to preeclampsia with severe features based on elevated transaminases and proteinuria. She had elevated, but no severe range blood pressures. She was started on magnesium sulfate for seizure prophylaxis. She had induction of labor started with misoprostol, then had spontaneous rupture of membranes and was started on oxytocin. She progressed to complete and had a normal second stage. recovery was complicated by a hemorrhage that occurred approximately 7 hours after delivery, but patient remained asymptomatic. Blood pressures normalized after delivery. She and her were doing well on day 2 and were discharged in good condition. ALLERGIES Allergies Allergy/AdvReac Type Severity Reaction Status Date / Time No Known Drug Allergies Allergy Verified 01/23/24 17:33 MEDICATIONS Ambulatory Orders Medication Instructions Recorded Confirmed fluticasone propionate 50 1 spray intranasal QDAY PRN 12/10/23 01/21/24 mcg/actuation nasal spray,suspension vitamin#30 30 mg iron-10 cap PO 12/10/23 01/21/24 mg iron-folic acid 1 mg-omg3 capsule vit C 90 mg-D3 3.15 mcg-E 3.35 tab PO 12/24/23 01/21/24 [id number] 150 mg chew tablet (Airborne Elderberry Complex) acetaminophen 500 mg tablet 1,000 mg (2 x 500 mg) PO Q8H PRN 01/26/24 (Acetaminophen Extra Strength) Pain #60 tabs docusate sodium 100 mg capsule 100 - 200 mg (1 - 2 x 100 mg) PO 01/26/24 BID PRN Constipation #60 caps ferrous sulfate 325 mg (65 mg 325 mg PO DAILY #30 tabs 01/26/24 iron) tablet ibuprofen 600 mg tablet 600 mg PO Q6H PRN Pain #30 tabs 01/26/24 LABS 01/26/24 08:13 01/26/24 08:13 FOLLOW UP Follow Up: With [facility] women[facility] care in 1 to 2 weeks TIME SPENT Time Spent in Discharge (Minutes): 20 Discharge Plan Discharge Patient Disposition: Home, Self Care Prescriptions: New acetaminophen [Acetaminophen Extra Strength] 500 mg tablet 1,000 mg PO Q8H PRN (Reason: Pain) Qty: 60 1RF docusate sodium 100 mg capsule 100 - 200 mg PO BID PRN (Reason: Constipation) Qty: 60 1RF ibuprofen 600 mg tablet 600 mg PO Q6H PRN (Reason: Pain) Qty: 30 0RF ferrous sulfate 325 mg (65 mg iron) tablet 325 mg PO DAILY Qty: 30 0RF Continued Airborne Elderberry Complex 90 mg-3.15 mcg- 3.35 mg-150 mg tablet,chewable PO fluticasone propionate 50 mcg/actuation spray,suspension 1 spray intranasal QDAY PRN Rx Instructions: administer into each nostril PNV #[id number] 30 mg iron-10 mg iron-1 mg capsule PO Diet: Regular Print Language: Luxembourgish Patient Instructions: Vaginal After, Depression"
[2024-01-26 08:26] LABS: BASOPHILS % (AUTO) 0.2 %; EOSINOPHILS # (AUTO) 0.2 10^3/uL (0.0-0.7); EOSINOPHILS % (AUTO) 1.8 %; HGB - HEMOGLOBIN 8.3 g/dL (12.0-16.0); LYMPHOCYTES # (AUTO) 1.6 10^3/uL (1.5-3.5); LYMPHOCYTES % (AUTO) 17.2 %; MEAN CORPUSCULAR HEMOGLOBIN 32.5 pg (27.0-31.0); MEAN CORPUSCULAR HGB CONC 33.2 g/dL (32.0-36.0); MEAN PLATELET VOLUME 9.9 fL (7.9-10.8); MONOCYTES # (AUTO) 0.6 10^3/uL (0.0-1.0); MONOCYTES % (AUTO) 6.7 %; NEUTROPHILS # (AUTO) 6.9 10^3/uL (1.5-6.6); NEUTROPHILS % (AUTO) 73.3 %; PLT - PLATELET COUNT 209 10^3/uL (130-450); RED BLOOD COUNT 2.55 10^6/uL (4.20-5.40); RED CELL DISTRIBUTION WIDTH 13.3 % (12.0-15.0); WHITE BLOOD COUNT 9.5 x10^3/uL (4.8-10.8)
[2024-01-26 08:36] LABS: ALBUMIN 2.8 g/dL (3.2-5.5); ALBUMIN/GLOBULIN RATIO 1.1 (1.0-2.2); ALKALINE PHOSPHATASE 85 IU/L (42-121); ALT ALANINE AMINOTRANSFERASE 148 IU/L (10-60); AST ASPARTATE AMINOTRANSFERASE 51 IU/L (10-42); BILIRUBIN,TOTAL 0.3 mg/dL (0.2-1.0); BUN - BLOOD UREA NITROGEN 9 mg/dL (6-20); CALCIUM 7.7 mg/dL (8.5-10.3); CARBON DIOXIDE - CO2 26 mmol/L (21-32); CHLORIDE 107 mmol/L (101-111); CREATININE 0.6 mg/dL (0.6-1.3); GFR - MDRD 114 (>89); GLUCOSE 73 mg/dL (74-104); IONIZED CALCIUM IF INDICATED YES; POTASSIUM 4.3 mmol/L (3.5-4.5); SODIUM 138 mmol/L (135-145); TOTAL PROTEIN 5.3 g/dL (6.4-8.9)
[2024-01-26 08:42] LABS: CALCIUM, IONIZED 1.01 mmol/L (1.15-1.33); VBG PH 7.431 (7.31-7.41)
[2024-01-26 12:31] VITALS: O2SAT 99
[2024-01-26] MEDS: DOCUSATE SODIUM 100 MG CAPSULE PO PRN (16:09)
--- NOTE | 2024-01-26 17:45 | Labor Flowsheet ---
Labor Flowsheet Datetime Report Generated by CPN: 01/26/2024 17:45 Datetime: 01/26/2024 12:29 VITAL SIGNS NBP Sys/Loly/Mean (mmHg): 134 : 85 : 96 Pulse: 73 Datetime: 01/24/2024 20:14 SpO2 (%): 98 Datetime: 01/24/2024 19:00 Stage of : Datetime: 01/24/2024 15:00 PAIN Pain Scale: 6 Pain Presence: Constant Pain Location: Perineum Pain Goal: 4 Datetime: 01/24/2024 13:59 LaborFlag: Labor Datetime: 01/24/2024 13:49 Stage 2 Comments: placenta Datetime: 01/24/2024 13:32 Vital Sign Comments: pulse ox replaced Datetime: 01/24/2024 13:30 UTERINE ACTIVITY Monitor Mode: External Frequency (min): 1-3 Duration (sec): unable to determind d/t pt pushing with cxtns Pattern: Normal: <= 5 Contractions in 10 Minutes Datetime: 01/24/2024 13:15 Contraction Comments: pt pushing with cxtns ASSESSMENT A Monitor Mode: External US FHR Baseline Rate : 125 Variability: Minimal - Undetectable to <=5 bpm Accelerations: None Decelerations: Variable Category: Category II Datetime: 01/24/2024 12:53 MEDICATIONS Pitocin (milliunits): Increased to @ 16 Medication Comments: VO per Dr.Bong Datetime: 01/24/2024 12:30 Patient Care Comments: pt using foot pedals Datetime: 01/24/2024 12:00 Quality: Strong Resting Tone (Palpate): Relaxed Datetime: 01/24/2024 11:30 Pitocin Checklist: No More than 1 Late Deceleration Occurred in Past 30 Minutes; No More than 2 [place] iable Decelerations > 60 Seconds in Duration and decreasing >60 bpm in 30 minutes; No More than 5 [place] Contractions in 10 Minutes for any 20 Minute Interval; Uterus Palpates Soft between Contractions Datetime: 01/24/2024 11:15 STAGE 2 Pushing: Coached on Pushing; Urge to Push Pushing Position: Pushing with Contractions; Pushing Lithotomy Datetime: 01/24/2024 11:13 VAGINAL EXAM Dilatation (cm): 10.0 Effacement (%): 100 Station: 2 Exam by: Datetime: 01/24/2024 11:05 Patient Position/Activity: Right Tilt Datetime: 01/24/2024 10:15 Respirations: 13 Temperature (C): 36.6 Temperature Route: Oral Monitor Interventions for UA: [place] Adjusted Pain Type: Pressure Datetime: 01/24/2024 10:10 Comments: wireless US . External US applied Datetime: 01/24/2024 09:57 Communication Comments: VO per Dr.Bong SVE recheck in an hour Datetime: 01/24/2024 09:44 Vaginal Bleeding: Normal Show Datetime: 01/24/2024 07:15 Actions for Decelerations: Side to Side Datetime: 01/24/2024 07:00 Oxygen Method: Room Air Datetime: 01/24/2024 06:56 I/O Interventions: Blake Cath Inserted Datetime: 01/24/2024 06:37 Monitor Interventions for FHR: Ultrasound Adjusted Datetime: 01/24/2024 06:21 Epidural Procedure Other: Pump Started Datetime: 01/24/2024 06:07 Epidural Procedure: Loading Dose Datetime: 01/24/2024 06:00 MATERNAL ASSESSMENT Level of Consciousness: Alert Headache: Denies Nausea/Vomiting: Denies RUQ Epigastric Pain: Denies Datetime: 01/24/2024 05:49 PROCEDURE TIME OUT Procedure Verify: Correct Patient Identity; Correct Side and Site are Marked; Accurate Procedure Co nsent Form; Agreement on Procedure to be Done; Correct Patient Position; Relevant Images and Results are Properly Labeled and Displayed; Addressed Need to Administer Antibiotics or Fluids for Irrigation ; Safety Precautions Based on Patient History or Medication Use ANESTHESIA Anesthesia Plans: Epidural Epidural Positioning: Sitting Datetime: 01/24/2024 05:45 Anesthesia Comments: anesthesia aty bedside Datetime: 01/24/2024 05:20 COMMUNICATION Communication: Call/Page Placed to Provider Provider Notified (Name): Britton Chapin (anesthesia) Notification Reason: Status Update; Pain Datetime: 01/24/2024 05:16 Pain Relief Measures: Comfort Measures Pain Coping: Talking Through Contractions; Breathing Through Contractions; Requesting Pain Medicati on or Epidural Pain Assessment Comments: pt requesting epidural before starting pitocin Comfort Measures: Hot Shower/Tub/Spa Datetime: 01/24/2024 04:02 DTR's/Clonus: DTRs 2+; No Clonus Datetime: 01/24/2024 03:17 Cervix, Consistency: Soft Cervix, Position: Midposition Datetime: 01/24/2024 02:36 Analgesics/Sedatives: Fentanyl (mcg) @ 50 Datetime: 01/24/2024 01:10 Cervical Ripening Agents: Cytotec @ Datetime: 01/23/2024 23:20 Membrane Status: Ruptured Membranes Rupture Method: Spontaneous Amniotic Fluid Color: Clear Amniotic Fluid Amount: Moderate Amniotic Fluid Odor: Normal Datetime: 01/23/2024 21:41 Membranes Ruptured Date/Time: 01/23/2024 23:20 Datetime: 01/23/2024 20:00 Breath Sounds, Left: Clear and Equal Breath Sounds, Right: Clear and Equal Datetime: 01/23/2024 19:00 FHR Baseline Changes: No Baseline Change Datetime: 01/23/2024 15:45 Magnesium/Antihypertensives: Magnesium Sulfate IV (Gm/hr) @ 50 Datetime: 01/23/2024 13:32 PATIENT CARE IV/Blood Work: IV Started
== END 2024-01-26 17:44 | disposition home or self-care (01) | DRG 807 ==
LOC: WFO 12:02 → FBP 12:04
PROVIDERS: ADMIT Obstetrics & Gynecology; ATTEND Obstetrics & Gynecology
DX: E83.51 Hypocalcemia; O70.0 First degree perineal laceration during delivery; Z37.0 Single live birth; O99.42 Diseases of the circulatory system complicating childbirth; O76 Abnormality in fetal heart rate and rhythm complicating labor and delivery; Z3A.37 37 weeks gestation of pregnancy; O99.284 Endocrine, nutritional and metabolic diseases complicating childbirth; O72.2 Delayed and secondary postpartum hemorrhage; I95.9 Hypotension, unspecified; O14.14 Severe pre-eclampsia complicating childbirth